=== PATIENT | male | born 1980 | race Two or more races ===

== ENCOUNTER → 2020-06-24 | Outpatient (CLI) | payer OTHER ==
--- NOTE | 2020-06-26 08:06 | RADIOLOGY REPORT (SQ) ---
EXAM DESCRIPTION: MRI CERVICAL SPINE WITHOUT IMAGES COMPLETED DATE/TIME: 06/24/2020 9:00 am REASON FOR STUDY: G95.2 SYRINGOMYELLA AND SYRINGOBULBIA G95.0 SYRINGOMYELIA AND SYRINGOBULBIA COMPARISON: None. TECHNIQUE: Sagittal and Axial imaging includes T1, T2, STIR and gradient echo sequences. LIMITATIONS: None. FINDINGS: ALIGNMENT: Normal. VERTEBRAE: Intact. BONE MARROW: Normal. No marrow replacement or reactive changes. DISCS: Mild decreased T2 weighted intervertebral disc signal at C2-3, C3-4, C4-5. No disc space loss of height. HARDWARE: None in the spine. CORD AND BASE OF BRAIN: Patient is post bilateral laminectomy from C4 through at least the T2 level, to the bottom edge of the field of view. From C4 through T1, the cervical spinal cord is small in caliber, with midline spinal cord focal atro phy. This is best shown on axial T2 series 7, images 50 through 160. The cervical spinal cord abuts the dorsal dural surface within the canal. Given the the extensive postsurgical change in the cervical cord, post contrasted imaging is recommen ded for followup to include sagittal T1 precontrast, sagittal postcontrast without and with fat sat, axial precontrast no fat-sat, axial postcontrast no fat-sat images from C2 through the T4 level. No outside prior images are available for comparison. SOFT TISSUES: No soft tissue masses. C1-C2: No significant spinal stenosis. C2-C3: No significant spinal stenosis or exit foraminal stenosis. C3-C4: No central canal or right foraminal narrowing. Mild left foraminal stenosis C4-C5: No significant spinal stenosis or exit foraminal stenosis. C5-C6: No significant spinal stenosis or exit foraminal stenosis. C6-C7: No significant spinal stenosis or exit foraminal stenosis. C7-T1: No significant spinal stenosis or exit foraminal stenosis. UPPER THORACIC: Incompletely imaged. No significant spinal stenosis or exit foraminal stenosis. OTHER: No other significant finding. IMPRESSION: Extensive postsurgical change in the cervical spine with bilateral laminectomies from C4 through the upper thoracic spine. 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 These findings appear chronic. Post contrasted imaging, and comparison to any prior outside imaging of the cervical spine is recomm ended for further evaluation TECHNICAL DOCUMENTATION: JOB ID: [id number] 2010 [employer]- All Rights Reserved Reading location - IP/workstation name: [email or web address]
== END ==
LOC: RAD 08:18
PROVIDERS: ATTEND Internal Medicine
DX: G95.0 Syringomyelia and syringobulbia (principal); M54.2 Cervicalgia; G95.89 Other specified diseases of spinal cord; F43.10 Post-traumatic stress disorder, unspecified; G56.20 Lesion of ulnar nerve, unspecified upper limb
CPT/HCPCS: 72141